=== PATIENT | male | born 1950 | race Caucasian/White ===

== ENCOUNTER 2019-12-24 10:12 | Day surgery (SDC) | payer BC ==
[2019-12-18 09:56] VITALS: BMI 29.9
[2019-12-24] MEDS ORDERED: LIDOCAINE HCL 2% (50ML VIAL) INF ONE ×2 (11:07→11:34)
[2019-12-24] MEDS ORDERED: MIDAZOLAM HCL 2 MG/2 ML SINGLE DOSE VIAL ONE (11:20)
[2019-12-24] MEDS ORDERED: oxyCODONE HCL 5 MG TABLET PO PRN (11:54)
[2019-12-24] MEDS ORDERED: ONDANSETRON 4 MG/2 ML VIAL IVPUSH PRN (11:54)
[2019-12-24] MEDS ORDERED: LACTATED RINGERS SOLUTION 1,000 ML IV SCH (12:00)
[2019-12-24 12:19] VITALS: TEMP 97.6
[2019-12-24 12:48] VITALS: BP 142/77; PULSE 84
--- NOTE | 2019-12-25 09:11 | OP ---
DATE OF OPERATION: 12/24/2019 PREOPERATIVE DIAGNOSES: 1. Right carpal tunnel syndrome. 2. Right thumb trigger finger. POSTOPERATIVE DIAGNOSES: 1. Right carpal tunnel syndrome. 2. Right thumb trigger finger. OPERATIVE PROCEDURES: 1. Right carpal tunnel release. 2. Right thumb trigger finger release. SURGEON: Danny Salcido MD ANESTHESIA: Local, with sedation. COMPLICATIONS: None. ESTIMATED BLOOD LOSS: Minimal. INDICATIONS FOR PROCEDURE: The patient is a 69-year-old male with the above findings. He was indicated for operative treatment. In the holding area, the patient noted that he was having clicking and locking of his thumb, which was not present when he saw me in the office. Physical examination at this time revealed tenderness over the A1 marek of the thumb, as well as triggering of the A1 marek at the thumb. I discussed the diagnosis and treatment options with him, and he desired to proceed in conjunction with proceed with a right thumb trigger thumb release. The risks, benefits and alternatives of both procedures were discussed at length and proper informed consent was obtained. DESCRIPTION OF PROCEDURE: After proper identification of the patient and correct operative site, the patient was brought to the operating room and placed supine on the table, with all bony prominences well-padded. Sedation and local anesthesia were given. The right upper extremity was prepped and draped in the usual sterile fashion. A well-padded tourniquet was placed after sterile prep. Esmarch bandage was used to exsanguinate the right upper extremity, and the tourniquet was inflated to 250 mmHg. A longitudinal incision was made in the proximal aspect of the palm. Incision was made sharply through the skin, with blunt and sharp dissection through the subcutaneous tissues. The palmar fascia was divided longitudinally. The transcarpal ligament and the distal 4 cm of the antebrachial fascia were divided longitudinally under direct visualization with loupe magnification. This provided complete release of the median nerve at the wrist. The wound was irrigated with saline and repaired with 5-0 fast-absorbing plain gut suture. A 2nd incision was made transversely across the A1 marek area of the thumb. Incision was made sharply through the skin, with blunt and sharp dissection through the subcutaneous tissues, taking care to protect the digital nerves. The A1 marek was identified and found to be severely hypertrophic. This was divided longitudinally. The patient was asked to flex and extended the thumb and no further triggering occurred. The wound was irrigated and repaired with 5-0 fast-absorbing plain gut suture. A sterile dressing was applied. The patient was brought to the recovery room in stable condition. He tolerated the procedure well. DANNY SALCIDO M.D. SHERMAN/[id number]
== END 2019-12-24 12:50 | disposition home or self-care (01) ==
LOC: FASU 10:12
PROVIDERS: ATTEND Orthopaedic Surgery Hand Surgery
PROC: 0LN70ZZ Release Right Hand Tendon, Open Approach (ICD-10-PCS; 2019-12-24)
PROC: 01N50ZZ Release Median Nerve, Open Approach (ICD-10-PCS; principal; 2019-12-24 11:30)
DX: G56.01 Carpal tunnel syndrome, right upper limb (principal); M65.311 Trigger thumb, right thumb
CPT/HCPCS: 82962

== ENCOUNTER 2021-02-16 06:03 | Day surgery (SDC) | payer BC ==
[2021-01-12 14:20] VITALS: BMI 29.3
[2021-02-16] MEDS ORDERED: LOCK ITEM NR ONE (06:36)
[2021-02-16] MEDS ORDERED: BUPIVACAINE HCL/PF 0.25% (2.5MG/ML) 10 ML VIAL ONE (07:07)
[2021-02-16] MEDS ORDERED: LIDOCAINE HCL 2% (20ML MULTI-DOSE VIAL) ONE (07:07)
[2021-02-16] MEDS ORDERED: LIDOCAINE HCL/PF 2% SDV 5ML VIAL ONE (07:09)
[2021-02-16] MEDS ORDERED: PROPOFOL 20 ML ONE ×2 (07:09)
[2021-02-16] MEDS ORDERED: MIDAZOLAM HCL 2 MG/2 ML SINGLE DOSE VIAL ONE (07:09)
[2021-02-16] MEDS ORDERED: SUCCINYLCHOLINE CHLORIDE 200 MG/10 ML SYRINGE ONE (07:09)
[2021-02-16] MEDS ORDERED: LIDOCAINE HCL 2% (50ML VIAL) INF ONE (07:58)
[2021-02-16] MEDS ORDERED: GUM MASTIC/STORAX/MSAL/ALCOHOL 1 DRP DROPSBTL MC ONE (08:04)
[2021-02-16 08:48] VITALS: TEMP 98.6
[2021-02-16 08:49] VITALS: BP 122/77; PULSE 77
== END 2021-02-16 09:00 | disposition home or self-care (01) ==
LOC: FASU 06:03
PROVIDERS: ATTEND Orthopaedic Surgery Hand Surgery
PROC: 01N50ZZ Release Median Nerve, Open Approach (ICD-10-PCS; principal; 2021-02-16 07:58)
DX: G56.02 Carpal tunnel syndrome, left upper limb (principal)
CPT/HCPCS: 82962